=== PATIENT | male | born 1955 | race Hispanic/Latino ===

== ENCOUNTER 2020-04-09 10:34 | Emergency (ER) | payer OTHER ==
[2020-04-10 13:56] LABS: SARS-CoV-2 MS2 Positive; SARS-CoV-2 N Gene Negative; SARS-CoV-2 S Gene Negative; SARS-CoV-2 orf1ab Negative
== END 2020-04-09 11:15 | disposition home or self-care (01) ==
LOC: NAV ERS 10:34
DX: Z20.828 Contact with and (suspected) exposure to other viral communicable diseases (principal); E11.9 Type 2 diabetes mellitus without complications; E03.9 Hypothyroidism, unspecified; Z79.899 Other long term (current) drug therapy
CPT/HCPCS: 87635; 99283; U0003

== ENCOUNTER 2021-04-11 19:27 | Emergency (ER) | payer BC, OTHER ==
[2021-04-11] MEDS ORDERED: Ondansetron ODT 4 MG TAB ONE (20:39)
[2021-04-11 21:05] LABS: INR-International Normal Ratio 1.1; PTT 28.1 sec (22.9-36.1); Prothrombin Time 14.2 sec (12.0-14.7)
[2021-04-11 21:08] LABS: Hemoglobin 14.9 g/dL (14.0-18.0); Mean Corpuscular HGB CONC 33.3 g/dL (32.0-36.0); Mean Corpuscular Volume 93.3 fL (78.0-98.0); Mean Platelet Volume 7.1 fL (7.4-10.4); Platelet Count 84 thou/uL (130-400); RBC Distribution Width 12.5 % (11.5-14.5); White Blood Cell (WBC) Count 6.5 thou/uL (4.8-10.8)
[2021-04-11 21:14] LABS: ALT (SGPT) 22 U/L (8-55); AST (SGOT) 32 U/L (5-34); Alkaline Phosphatase 148 U/L (40-110); Anion Gap 14 mmol/L (10-20); BUN (Urea Nitrogen) 13 mg/dL (8.4-25.7); Bilirubin, Total 1.4 mg/dL (0.2-1.2); Calc. Creatinine Clearance 0 mL/min (70-130); Calcium 9.3 mg/dL (7.8-10.44); Carbon Dioxide 23 mmol/L (23-31); Chloride 105 mmol/L (98-107); Globulin 2.9 g/dL (2.4-3.5); Glucose 246 mg/dL (80-115); Potassium 3.6 mmol/L (3.5-5.1); Protein, Total 6.9 g/dL (5.8-8.1); Sodium 138 mmol/L (136-145)
[2021-04-11] MEDS ORDERED: Fentanyl 100 MCG/2 ML VIAL ONE (21:15)
[2021-04-11 21:21] LABS: #Basophils 0.1 thou/uL (0.0-0.2); #Eosinphils 0.1 thou/uL (0.0-0.7); #Lymphocytes 0.9 thou/uL (1.20-3.40); #Monocytes 0.5 thou/uL (0.11-0.59); #Neutrophils 5.1 thou/uL (1.40-6.50); %Basophils 0.8 % (0.0-1.0); %Eosinophils 0.9 % (0.0-10.0); %Lymphocytes 13.3 % (21.0-51.0); %Monocytes 7.4 % (0.0-10.0); %Neutrophils 77.7 % (42.0-75.0); Platelet Morphology Comment Appears Decreased; RBC Morphology Normal
== END 2021-04-11 21:54 | disposition short-term general hospital (02) ==
LOC: NAV ERS 19:27
DX: S22.089A Unspecified fracture of T11-T12 vertebra, initial encounter for closed fracture (principal); S32.019A Unspecified fracture of first lumbar vertebra, initial encounter for closed fracture; S32.301A Unspecified fracture of right ilium, initial encounter for closed fracture; E11.9 Type 2 diabetes mellitus without complications; E03.9 Hypothyroidism, unspecified; I10 Essential (primary) hypertension; Z79.899 Other long term (current) drug therapy; X58.XXXA Exposure to other specified factors, initial encounter
CPT/HCPCS: 72131; 72192; 80053; 85025; 85610; 85730; 86900; 86901; 93005; 96374; J3010; Q0162

== ENCOUNTER 2021-04-18 11:31 | Inpatient (IN) | payer BC ==
[2021-04-18] MEDS ORDERED: Dextrose 50% Abboject 50 ML SYRINGE SLOW IVP PRN (12:29)
[2021-04-18] MEDS ORDERED: HumaLOG 300 UNITS/3 ML VIAL SC PRN (12:30)
[2021-04-18] MEDS ORDERED: Dextrose 5% in Water 1,000 ML IV PRN (12:30)
[2021-04-18] MEDS: traMADol HCl 50 MG TAB PO PRN (13:53)
[2021-04-18] MEDS: Acetaminophen 500 MG TAB PO PRN (13:56)
[2021-04-18] MEDS: Gabapentin 100 MG CAP PO SCH ×2 (13:57→20:49)
[2021-04-18] MEDS: Pioglitazone HCl 15 MG TAB PO SCH (16:51)
[2021-04-18] MEDS: metFORMIN 850 MG TAB PO SCH (16:51)
[2021-04-19] MEDS: traMADol HCl 50 MG TAB PO PRN (02:56)
[2021-04-19 05:24] LABS: #Basophils 0.1 thou/uL (0.0-0.2); #Eosinphils 0.3 thou/uL (0.0-0.7); #Lymphocytes 0.8 thou/uL (1.20-3.40); #Monocytes 0.5 thou/uL (0.11-0.59); #Neutrophils 3.7 thou/uL (1.40-6.50); %Basophils 1.1 % (0.0-1.0); %Eosinophils 5.2 % (0.0-10.0); %Lymphocytes 15.1 % (21.0-51.0); %Monocytes 9.4 % (0.0-10.0); %Neutrophils 69.3 % (42.0-75.0); Hemoglobin 11.8 g/dL (14.0-18.0); Mean Corpuscular HGB CONC 34.7 g/dL (32.0-36.0); Mean Corpuscular Hemoglobin 32.1 pg (27.0-31.0); Mean Corpuscular Volume 92.4 fL (78.0-98.0); Mean Platelet Volume 6.2 fL (7.4-10.4); Platelet Count 113 thou/uL (130-400); RBC Distribution Width 13.3 % (11.5-14.5); Red Blood Cell (RBC) Count 3.67 mill/uL (4.70-6.10); White Blood Cell (WBC) Count 5.3 thou/uL (4.8-10.8)
[2021-04-19 05:38] LABS: ALT (SGPT) 14 U/L (8-55); AST (SGOT) 23 U/L (5-34); Albumin 3.2 g/dL (3.4-4.8); Alkaline Phosphatase 86 U/L (40-110); Anion Gap 14 mmol/L (10-20); BUN (Urea Nitrogen) 14 mg/dL (8.4-25.7); Bilirubin, Total 1.1 mg/dL (0.2-1.2); Calc. Creatinine Clearance 109 mL/min (70-130); Calcium 8.3 mg/dL (7.8-10.44); Carbon Dioxide 24 mmol/L (23-31); Chloride 99 mmol/L (98-107); Globulin 2.5 g/dL (2.4-3.5); Glucose 176 mg/dL (80-115); Potassium 4.1 mmol/L (3.5-5.1); Protein, Total 5.7 g/dL (5.8-8.1); Sodium 133 mmol/L (136-145)
[2021-04-19] MEDS: HumaLOG 300 UNITS/3 ML VIAL SC PRN ×2 (05:55→12:19)
[2021-04-19] MEDS: Pioglitazone HCl 15 MG TAB PO SCH ×2 (08:19→16:15)
[2021-04-19] MEDS: Gabapentin 100 MG CAP PO SCH ×3 (08:20→20:51)
[2021-04-19] MEDS: Glimepiride 2 MG TAB PO SCH (08:20)
[2021-04-19] MEDS: Lisinopril 10 MG TAB PO SCH (08:20)
[2021-04-19] MEDS: metFORMIN 850 MG TAB PO SCH ×2 (08:20→16:15)
[2021-04-19] MEDS: Acetaminophen 500 MG TAB PO PRN (09:22)
[2021-04-20] MEDS: HumaLOG 300 UNITS/3 ML VIAL SC PRN ×2 (06:23→12:19)
[2021-04-20] MEDS: metFORMIN 850 MG TAB PO SCH ×2 (08:22→17:24)
[2021-04-20] MEDS: Lisinopril 10 MG TAB PO SCH (08:22)
[2021-04-20] MEDS: Glimepiride 2 MG TAB PO SCH (08:22)
[2021-04-20] MEDS: Pioglitazone HCl 15 MG TAB PO SCH ×2 (08:22→17:24)
[2021-04-20] MEDS: Gabapentin 100 MG CAP PO SCH ×3 (08:22→21:24)
[2021-04-21 05:31] LABS: #Basophils 0.1 thou/uL (0.0-0.2); #Eosinphils 0.2 thou/uL (0.0-0.7); #Lymphocytes 0.8 thou/uL (1.20-3.40); #Monocytes 0.5 thou/uL (0.11-0.59); #Neutrophils 3.7 thou/uL (1.40-6.50); %Basophils 1.1 % (0.0-1.0); %Eosinophils 3.8 % (0.0-10.0); %Lymphocytes 15.9 % (21.0-51.0); %Monocytes 9.1 % (0.0-10.0); %Neutrophils 70.1 % (42.0-75.0); Hemoglobin 11.7 g/dL (14.0-18.0); Mean Corpuscular HGB CONC 34.5 g/dL (32.0-36.0); Mean Corpuscular Hemoglobin 31.9 pg (27.0-31.0); Mean Corpuscular Volume 92.6 fL (78.0-98.0); Mean Platelet Volume 6.3 fL (7.4-10.4); Platelet Count 131 thou/uL (130-400); RBC Distribution Width 13.3 % (11.5-14.5); Red Blood Cell (RBC) Count 3.65 mill/uL (4.70-6.10); White Blood Cell (WBC) Count 5.3 thou/uL (4.8-10.8)
[2021-04-21 05:45] LABS: Anion Gap 14 mmol/L (10-20); BUN (Urea Nitrogen) 9 mg/dL (8.4-25.7); Calc. Creatinine Clearance 110 mL/min (70-130); Calcium 8.7 mg/dL (7.8-10.44); Carbon Dioxide 23 mmol/L (23-31); Chloride 101 mmol/L (98-107); Glucose 153 mg/dL (80-115); Potassium 3.8 mmol/L (3.5-5.1); Sodium 134 mmol/L (136-145)
[2021-04-21] MEDS: Glimepiride 2 MG TAB PO SCH (08:38)
[2021-04-21] MEDS: Gabapentin 100 MG CAP PO SCH ×3 (08:38→20:48)
[2021-04-21] MEDS: Pioglitazone HCl 15 MG TAB PO SCH ×2 (08:38→15:56)
[2021-04-21] MEDS: metFORMIN 850 MG TAB PO SCH ×2 (08:38→15:56)
[2021-04-21] MEDS: Lisinopril 10 MG TAB PO SCH (08:39)
[2021-04-21] MEDS: HumaLOG 300 UNITS/3 ML VIAL SC PRN (12:21)
[2021-04-21 12:55] VITALS: BMI 23.3
[2021-04-22] MEDS: Pioglitazone HCl 15 MG TAB PO SCH ×2 (09:00→16:10)
[2021-04-22] MEDS: metFORMIN 850 MG TAB PO SCH ×2 (09:00→16:10)
[2021-04-22] MEDS: Lisinopril 10 MG TAB PO SCH (09:00)
[2021-04-22] MEDS: Glimepiride 2 MG TAB PO SCH (09:00)
[2021-04-22] MEDS: Gabapentin 100 MG CAP PO SCH ×3 (09:00→20:17)
[2021-04-22] MEDS: HumaLOG 300 UNITS/3 ML VIAL SC PRN (12:28)
[2021-04-23] MEDS: HumaLOG 300 UNITS/3 ML VIAL SC PRN ×2 (05:38→12:29)
[2021-04-23] MEDS: traMADol HCl 50 MG TAB PO PRN ×2 (07:16→20:49)
[2021-04-23] MEDS: Glimepiride 2 MG TAB PO SCH (07:16)
[2021-04-23] MEDS: Acetaminophen 500 MG TAB PO PRN (07:17)
[2021-04-23] MEDS: metFORMIN 850 MG TAB PO SCH ×2 (09:07→16:41)
[2021-04-23] MEDS: Lisinopril 10 MG TAB PO SCH (09:07)
[2021-04-23] MEDS: Gabapentin 100 MG CAP PO SCH ×3 (09:07→20:46)
[2021-04-23] MEDS: Pioglitazone HCl 15 MG TAB PO SCH ×2 (09:07→16:41)
[2021-04-24] MEDS: traMADol HCl 50 MG TAB PO PRN ×2 (05:24→22:04)
[2021-04-24] MEDS: metFORMIN 850 MG TAB PO SCH ×2 (08:31→16:34)
[2021-04-24] MEDS: Lisinopril 10 MG TAB PO SCH (08:31)
[2021-04-24] MEDS: Pioglitazone HCl 15 MG TAB PO SCH ×2 (08:31→16:34)
[2021-04-24] MEDS: Glimepiride 2 MG TAB PO SCH (08:31)
[2021-04-24] MEDS: Gabapentin 100 MG CAP PO SCH ×3 (08:31→20:24)
[2021-04-24] MEDS: Acetaminophen 500 MG TAB PO PRN (08:34)
[2021-04-24] MEDS: HumaLOG 300 UNITS/3 ML VIAL SC PRN (12:20)
[2021-04-25 08:34] VITALS: TEMP 98.9
[2021-04-25] MEDS: Gabapentin 100 MG CAP PO SCH (08:34)
[2021-04-25] MEDS: Lisinopril 10 MG TAB PO SCH (08:34)
[2021-04-25] MEDS: metFORMIN 850 MG TAB PO SCH (08:34)
[2021-04-25] MEDS: Glimepiride 2 MG TAB PO SCH (08:34)
[2021-04-25] MEDS: Pioglitazone HCl 15 MG TAB PO SCH (08:34)
[2021-04-25 08:35] VITALS: BP 133/64
== END 2021-04-25 10:30 | disposition home or self-care (01) | DRG 560 ==
LOC: NAV ACUTE 11:31
PROVIDERS: ADMIT Internal Medicine; ATTEND Internal Medicine
DX: S32.011D Stable burst fracture of first lumbar vertebra, subsequent encounter for fracture with routine healing (principal); D62 Acute posthemorrhagic anemia; W11.XXXD Fall on and from ladder, subsequent encounter; E11.9 Type 2 diabetes mellitus without complications; I10 Essential (primary) hypertension; R53.81 Other malaise; D69.6 Thrombocytopenia, unspecified; E03.9 Hypothyroidism, unspecified; Z98.890 Other specified postprocedural states; S22.081D Stable burst fracture of T11-T12 vertebra, subsequent encounter for fracture with routine healing; S32.301D Unspecified fracture of right ilium, subsequent encounter for fracture with routine healing; Z79.84 Long term (current) use of oral hypoglycemic drugs
CPT/HCPCS: 36416; 80048; 80053; 85025; J1815

== ENCOUNTER 2021-05-29 12:35 | Outpatient (CLI) | payer BC | END 2021-05-29 12:36 | disposition home or self-care (01) | LOC: NAV RAD 12:35 | PROVIDERS: ATTEND Neurological Surgery | DX: S32.009A Unspecified fracture of unspecified lumbar vertebra, initial encounter for closed fracture (principal); S22.009A Unspecified fracture of unspecified thoracic vertebra, initial encounter for closed fracture; M47.816 Spondylosis without myelopathy or radiculopathy, lumbar region; M47.814 Spondylosis without myelopathy or radiculopathy, thoracic region; Z98.890 Other specified postprocedural states | CPT/HCPCS: 72072; 72100 ==